=== PATIENT | female | born 1985 | race Caucasian/White ===

== ENCOUNTER → 2017-07-02 | Outpatient (CLI) | payer OTHER ==
--- NOTE | 2017-07-02 16:02 | MR ---
EXAMINATION TYPE: MR kikeine/bouchra wo con DATE OF EXAM: 07/02/2017 COMPARISON: NONE HISTORY: Cervicalgia, LBP CONTRAST: Performed utilizing 0 mL intravenous Gadavist gadolinium contrast. TECHNIQUE: Multiplanar multiecho imaging on a 3.0 Cristina magnet is performed through the cervical spin e. FINDINGS: The craniovertebral junction is normal. Vertebral body alignment is normal. Disc hydrati on is normal. Disc heights are preserved. C6-7: Minimal disc bulge has anterior thecal sac contact and flattening. No spinal canal stenosis or cord contact is evident. Neural foramen are patent.. C5-6: Very minimal disc bulge may be present with anterior thecal sac flattening. No AP spinal canal stenosis present. No cord contact is evident. Neural foramen are patent.. Remaining cervical disc levels: No focal disc herniation or significant disc bulge is evident. No sp inal canal stenosis or neural foraminal stenosis is present. IMPRESSIONS: 1. Minimal disc bulge of questionable clinical significance C5-6 C6-7. EXAMINATION TYPE: MR kikeine/obuchra wo con DATE OF EXAM: 07/02/2017 COMPARISON: NONE HISTORY: Cervicalgia, LBP CONTRAST: 0 mL intravenous Gadavist. TECHNIQUE: Multiplanar, multisequence images of the lumbar spine were acquired. FINDINGS: Cord terminates at the L1 level. Disc heights are preserved. Vertebral body heights are preserved. There may be some very minimal central protrusion at L5-S1. This extends into the epidural space with out thecal sac contact. No exiting nerve root contact is evident. The sagittal plane there may be a subtle suggestion of a right paracentral disc protrusion at L4-5. N o cord contact or exiting nerve root contact is evident. Remaining disc levels appear normal. No focal disc herniations or significant disc bulges are evident . No spinal canal stenosis or neural foraminal stenosis is present. IMPRESSION: 1. Essentially normal MRI lumbar spine.
== END | disposition home or self-care (01) ==
LOC: RADMRIMAIN 13:12
PROVIDERS: ATTEND Psychiatry & Neurology Neurology
DX: M50.223 Other cervical disc displacement at C6-C7 level (principal); M54.5 Low back pain; Z88.6 Allergy status to analgesic agent
CPT/HCPCS: 72141; 72148

== ENCOUNTER 2020-01-16 16:16 | Emergency (ER) | payer OTHER ==
[2020-01-16 16:26] VITALS: BP 149/81; PULSE 110; RESP 20; TEMP 99
[2020-01-16] MEDS ORDERED: ACET/COD 300 MG/30 MG STARTER PACK 6 TAB BTL PO STA (16:39)
--- NOTE | 2020-01-16 16:48 | ED ---
ENT HPI - General Chief complaint: Dental/Oral Stated complaint: dental pain Time Seen by Provider: 01/16/20 16:36 Source: patient Mode of arrival: ambulatory Limitations: no limitations - History of Present Illness Initial comments: Patient is 34-year-old female presenting to the emergency department with a chief complaint of dental pain. Patient reports 3 days ago she had a root canal performed and was given Tylenol 3 and amoxicillin. Patient reports she still has several days left of the antibiotic but finished the Tylenol 3. Patient reports the pain is exacerbated now she is scheduled to go back to see the dentist but he was close over the weekend. Patient states she has significant amount of pain at the repaired tooth and is not able to eat. Denies any facial swelling, erythema, edema, night sweats fevers or chills. Denies any drooling or swelling under the jaw. - Related Data Home Medications Medication Instructions Recorded Confirmed HYDROcodone/APAP 7.5-325MG [[place] 1 tab PO Q6HR PRN 03/26/15 05/11/15 7.5-325] Omeprazole [PriLOSEC] 20 mg PO AC-BRKFST 03/26/15 05/11/15 Dicyclomine HCl [Bentyl] 40 mg PO QID 05/11/15 05/11/15 Etodolac [Lodine] 500 mg PO BID 05/11/15 05/11/15 Allergies Allergy/AdvReac Type Severity Reaction Status Date / Time aspirin Allergy Nausea & Verified 01/16/20 16:26 Vomiting & Diarrhea Review of Systems ROS Statement: Those systems with pertinent positive or pertinent negative responses have been documented in the HPI. ROS Other: All systems not noted in ROS Statement are negative. Past Medical History Past Medical History: Asthma, GERD/Reflux Additional Past Medical History / Comment(s): HYPOGLYCEMIA History of Any Multi-Drug Resistant Organisms: None Reported Past Surgical History: No Surgical Hx Reported Past Psychological History: Anxiety, Bipolar Smoking Status: Vaper Past Alcohol Use History: None Reported Past Drug Use History: None Reported General Exam Limitations: no limitations General appearance: alert, in no apparent distress, obese Head exam: Present: atraumatic, normocephalic, normal inspection Eye exam: Present: normal appearance, PERRL, EOMI Pupils: Present: normal accommodation ENT exam: Present: normal exam, normal oropharynx (Recent dental work performed on tooth #20. There appears to be a temporary filling on the repair tooth. No other dental lesions noted. No periapical abscesses.), mucous membranes moist, TM's normal bilaterally, normal external ear exam Neck exam: Present: normal inspection, full ROM. Absent: tenderness Respiratory exam: Present: normal lung sounds bilaterally. Absent: respiratory distress, wheezes, rales Cardiovascular Exam: Present: regular rate, normal rhythm, normal heart sounds Extremities exam: Present: normal inspection, full ROM, normal capillary refill. Absent: tenderness Back exam: Present: normal inspection, full ROM. Absent: tenderness, CVA t enderness (R), CVA tenderness (L) Neurological exam: Present: alert, oriented X3 Psychiatric exam: Present: normal affect, normal mood Skin exam: Present: warm, dry, intact, normal color Course Vital Signs 01/16/20 16:17 Temperature 99.0 F Pulse Rate 110 H Respiratory 20 Rate Blood Pressure 149/81 O2 Sat by Pulse 100 Oximetry Medical Decision Making - Medical Decision Making Patient is 34-year-old female presenting to the emergency department with chief complaint of dental pain. On physical examination, patient has recent dental work on tooth #20 which appears to have a temporary filling that is still in place. No other lesions detected. I gave the patient Tylenol 3 starter pack. I also advised her to continue taking the amoxicillin. She was advised to alternate between Tylenol and Motrin for pain control. Strict return parameters were thoroughly discussed with patient is understanding and agreeable. Case discussed with physician. Disposition Clinical Impression: Pain, dental Disposition: HOME SELF-CARE Condition: Stable Instructions (If sedation given, give patient instructions): Toothache (ED) Additional Instructions: Do not drive or operate heavy machinery taking Tylenol 3. Follow with a dentist. Return to emergency department if symptoms worsen. Is patient prescribed a controlled substance at d/c from ED?: No Referrals: Omayra Feng MD [Primary Care Provider] - 1-2 days Time of Disposition: 16:48
== END 2020-01-16 16:55 | disposition home or self-care (01) ==
LOC: EC 16:16
DX: K08.89 Other specified disorders of teeth and supporting structures (principal); K21.9 Gastro-esophageal reflux disease without esophagitis; F17.290 Nicotine dependence, other tobacco product, uncomplicated; Z79.899 Other long term (current) drug therapy; Z88.6 Allergy status to analgesic agent
CPT/HCPCS: 99282

== ENCOUNTER 2020-05-26 16:21 | Emergency (ER) | payer OTHER ==
[2020-05-26 16:26] VITALS: RESP 18; TEMP 98
--- NOTE | 2020-05-26 17:58 | XR ---
Result: History: Pain status post fall. Comparison: None available. Technique: 4 views of the right ribs with PA chest. Findings: There is questionable nondisplaced posterior right fifth rib fracture. The cardiac silhouette is within normal limits for size and appearance. The lungs are clear without evidence of focal consolidation, pleural effusion, pulmonary edema, or pneumothorax. Impression: 1. Questionable right fifth rib fracture. 2. No acute cardiopulmonary abnormality.
[2020-05-26] MEDS ORDERED: ACET/COD 300 MG/30 MG STARTER PACK 6 TAB BTL PO STA (18:04)
--- NOTE | 2020-05-26 18:04 | ED ---
Back Pain HPI - General Chief Complaint: Back Pain/Injury Stated Complaint: Abdominal/Rib pain Time Seen by Provider: 05/26/20 16:26 Source: patient, RN notes reviewed Limitations: no limitations - History of Present Illness Initial Comments: 34-year-old female presents emergency from chief complaint right-sided rib pain. Patient states that she was leaning over her bathtub and felt a pop of her wrist. Patient states that she's had constant pain worse with movement. Patient states that she has pain with deep inspiration or shortness breath at rest. No other complaints at this time. - Related Data Home Medications Medication Instructions Recorded Confirmed HYDROcodone/APAP 7.5-325MG [[place] 1 tab PO Q6HR PRN 03/26/15 05/11/15 7.5-325] Omeprazole [PriLOSEC] 20 mg PO AC-BRKFST 03/26/15 05/11/15 Dicyclomine HCl [Bentyl] 40 mg PO QID 05/11/15 05/11/15 Etodolac [Lodine] 500 mg PO BID 05/11/15 05/11/15 Allergies Allergy/AdvReac Type Severity Reaction Status Date / Time aspirin Allergy Nausea & Verified 05/26/20 16:27 Vomiting & Diarrhea Review of Systems ROS Statement: Those systems with pertinent positive or pertinent negative responses have been documented in the HPI. ROS Other: All systems not noted in ROS Statement are negative. Past Medical History Past Medical History: Asthma, GERD/Reflux Additional Past Medical History / Comment(s): HYPOGLYCEMIA History of Any Multi-Drug Resistant Organisms: None Reported Past Surgical History: No Surgical Hx Reported Past Psychological History: Anxiety, Bipolar Smoking Status: Vaper Past Alcohol Use History: None Reported Past Drug Use History: None Reported General Exam Limitations: no limitations General appearance: alert, in no apparent distress Head exam: Present: atraumatic, normocephalic, normal inspection Eye exam: Present: normal appearance, PERRL, EOMI. Absent: scleral icterus, conjunctival injection, periorbital swelling ENT exam: Present: normal exam, normal oropharynx, mucous membranes moist Neck exam: Present: normal inspection, full ROM. Absent: tenderness, meningismus, lymphadenopathy Respiratory exam: Present: normal lung sounds bilaterally, chest wall tenderness (Moderate anterior lateral). Absent: respiratory distress, wheezes, rales, rhonchi, stridor Cardiovascular Exam: Present: regular rate, normal rhythm, normal heart sounds. Absent: systolic murmur, diastolic murmur, rubs, gallop, clicks GI/Abdominal exam: Present: soft, normal bowel sounds. Absent: distended, tenderness, guarding, rebound, rigid Course Vital Signs 05/26/20 16:23 Temperature 98.0 F Pulse Rate 108 H Respiratory 18 Rate Blood Pressure 119/56 O2 Sat by Pulse 100 Oximetry Medical Decision Making - Medical Decision Making X-ray shows no acute infiltrate, pneumothorax though does have a noted rib fracture. Patient discharged in stable condition return parameters were discussed. Disposition Clinical Impression: Right rib fracture Disposition: HOME SELF-CARE Condition: Stable Instructions (If sedation given, give patient instructions): Rib Fracture (ED) Additional Instructions: Please return to the Emergency Department if symptoms worsen or any other concerns. Is patient prescribed a controlled substance at d/c from ED?: No Referrals: Omayra Feng MD [Primary Care Provider] - 1-2 days Time of Disposition: 18:03
[2020-05-26 18:23] VITALS: BP 117/76; PULSE 98
== END 2020-05-26 18:23 | disposition home or self-care (01) ==
LOC: EC 16:21
DX: S22.31XA Fracture of one rib, right side, initial encounter for closed fracture (principal); K21.9 Gastro-esophageal reflux disease without esophagitis; F41.9 Anxiety disorder, unspecified; F17.290 Nicotine dependence, other tobacco product, uncomplicated; F31.9 Bipolar disorder, unspecified; Z79.899 Other long term (current) drug therapy; Z88.6 Allergy status to analgesic agent; X58.XXXA Exposure to other specified factors, initial encounter; Y93.H9 Activity, other involving exterior property and land maintenance, building and construction
CPT/HCPCS: 99283

== ENCOUNTER → 2020-09-27 | Outpatient (CLI) | payer OTHER ==
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
== END | disposition home or self-care (01) ==
LOC: RADBDWWP 15:44
PROVIDERS: ATTEND Family Medicine
DX: Z13.820 Encounter for screening for osteoporosis (principal)
CPT/HCPCS: 77080

== ENCOUNTER 2020-10-05 | Emergency (ER) | payer OTHER | END 2020-10-05 19:52 | disposition home or self-care (01) | CPT/HCPCS: 99283 ==

== ENCOUNTER 2021-05-06 19:52 | Emergency (ER) | payer OTHER ==
[2021-05-06 20:02] VITALS: BP 139/81; PULSE 105; RESP 18; TEMP 98.5
[2021-05-06] MEDS ORDERED: Acetaminophen-Codeine 300-30mg TAB PO STA (20:09)
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
--- NOTE | 2021-05-06 20:43 | XR ---
EXAMINATION TYPE: XR chest 2V DATE OF EXAM: 05/06/2021 8:29 PM COMPARISON:Multiple radiographs, with the most recent on 10/05/2020 TECHNIQUE: Frontal and lateral views of the chest. CLINICAL INDICATION:Female, 35 years old with history of pain; FINDINGS: Lungs/Pleura: There is no evidence of pleural effusion, focal consolidation, or pneumothorax. Pulmonary vascularity: Unremarkable. Heart/mediastinum: Cardiomediastinal silhouette is unremarkable. Musculoskeletal: No acute osseous pathology. IMPRESSION: No acute cardiopulmonary disease/process.
== END 2021-05-06 21:29 | disposition home or self-care (01) ==
LOC: EC 19:52
DX: R07.89 Other chest pain (principal); J45.909 Unspecified asthma, uncomplicated; J21.9 Acute bronchiolitis, unspecified; F31.9 Bipolar disorder, unspecified; F41.9 Anxiety disorder, unspecified; F17.290 Nicotine dependence, other tobacco product, uncomplicated; Z79.899 Other long term (current) drug therapy; X50.1XXA Overexertion from prolonged static or awkward postures, initial encounter
CPT/HCPCS: 71046; 99283

== ENCOUNTER → 2023-12-17 | Outpatient (CLI) | payer OTHER ==
[2023-12-17 15:37] LABS: Basophils # (A) 0.05 X 10*3/uL (0.00-0.10); Basophils % (A) 0.5 %; Eosinophils # (A) 0.12 X 10*3/uL (0.04-0.35); Eosinophils % (A) 1.3 %; HCT 44.6 % (37.2-46.3); HGB 14.6 g/dL (12.0-15.0); Lymphocytes # (A) 3.09 X 10*3/uL (0.90-5.00); Lymphocytes % (A) 33.5 %; MCH 30.5 pg (27.0-32.0); MCHC 32.7 g/dL (32.0-37.0); MCV 93.1 FL (80.0-97.0); Mean Platelet Volume 10.7 FL (9.5-12.2); Monocytes # (A) 0.71 X 10*3/uL (0.20-1.00); Monocytes % (A) 7.7 %; NRBC Per 100 WBC 0 X 10*3/uL (0.00-0.01); Neutrophils # (A) 5.23 X 10*3/uL (1.80-7.70); Neutrophils % (A) 56.7 %; Platelet Count 348 X 10*3/uL (140-440); RBC 4.79 X 10*6/uL (4.10-5.20); WBC 9.23 X 10*3/uL (4.50-10.00)
[2023-12-17 15:42] LABS: ALT 32 U/L (8-44); AST 28 U/L (13-35); Albumin 4.2 g/dL (3.8-4.9); Alkaline Phosphatase 105 U/L (41-126); BUN/Creat Ratio 10.75 Ratio (12.00-20.00); Blood Urea Nitrogen 8.6 mg/dL (9.0-27.0); Calcium 9.5 mg/dL (8.7-10.3); Carbon Dioxide 27.2 mmol/L (21.6-31.8); Chloride 101 mmol/L (96-109); Globulin 2.8 g/dL (1.6-3.3); Glucose 104 mg/dL (70-110); Potassium 4.5 mmol/L (3.5-5.5); Sodium 139 mmol/L (135-145); Total Bilirubin 0.2 mg/dL (0.3-1.2)
== END | disposition home or self-care (01) ==
LOC: LABWHC1 11:44
PROVIDERS: ATTEND Internal Medicine Gastroenterology
DX: K76.0 Fatty (change of) liver, not elsewhere classified (principal)
CPT/HCPCS: 36415; 80053; 81596; 85025